=== PATIENT | female | born 1990 | race African-American/Black ===

== ENCOUNTER 2017-12-07 09:43 | Inpatient (IN) | payer SELFPAY ==
[~2017-12-07] VITALS: Ht 162.6 cm; Wt 60.5 kg
[2017-12-07] VITALS (9 sets, daily range): BP systolic 99–123; BP diastolic 55–69
[2017-12-07 10:21] LABS: BASOPHIL (%) 0 % (0-1); EOSINOPHIL (%) 0.4 % (0-5); HEMATOCRIT 16.8 % (36.0-46.0); HEMOGLOBIN 4.6 G/DL (11.9-15.5); IMMATURE GRANULOCYTE (%) 0.6 % (0.0-0.7); LYMPHOCYTE (%) 30.4 % (15-42); LYMPHOCYTE COUNT 1.5 K/uL (1.0-2.8); MCH 19.7 PG (29.0-34.0); MCHC 27.4 G/DL (30.0-36.0); MCV 72.1 FL (83-99); MONOCYTE (%) 9.9 % (3-12); MONOCYTE COUNT 0.5 K/uL (0-0.8); NEUTROPHIL (%) 58.7 % (45-76); NEUTROPHIL COUNT 2.8 K/uL (1.8-6.4); NRBC (%) 0.8 /100 WBC (0-0); PLATELET COUNT 415 K/uL (156-360); RBC DIS.WIDTH-CV 23.7 % (11.8-14.6); RBC DIS.WIDTH-SD 58.3 % (39-53); RED BLOOD COUNT 2.33 M/uL (3.80-5.20); WHITE BLOOD COUNT 4.8 K/uL (4.1-10.2)
[2017-12-07 10:23] LABS: CHLORIDE 108 mEq/L (99-109); SODIUM 139 mEq/L (136-147)
[2017-12-07 10:25] LABS: GLUCOSE 86 mg/dL (70-99)
[2017-12-07 10:28] LABS: POTASSIUM 3.6 mEq/L (3.7-5.4)
[2017-12-07 10:29] LABS: CREATININE 0.7 mg/dL (0.6-1.3)
[2017-12-07 10:30] LABS: GFR ESTIMATE (CALCULATED) > 59 mL/min/; UREA NITROGEN (BUN) 8 mg/dL (9-23)
[2017-12-07 10:37] LABS: QUANTITATIVE HCG < 4.0 MIU/ML
[2017-12-07 11:22] LABS: FOLIC ACID (FOLATE) 20.5 NG/ML (5.0-22.0)
[2017-12-07 11:44] LABS: IRON 14 MCG/DL (35-150); TRANSFERRIN (TIBC) 340.4 mg/dL (215-380); TRANSFERRIN SATUR. 4 % (20-55)
[2017-12-07] MEDS ORDERED: IRON325 M1 PO (11:45)
[2017-12-07] MEDS ORDERED: FOLIC ACID1 MG PO (11:45)
[2017-12-07] MEDS ORDERED: MULTI VITAMIN1 EACH PO (11:45)
[2017-12-07] MEDS ORDERED: PIRMELLA1 EACH PO (11:45)
[2017-12-07 12:30] LABS: FERRITIN 8 NG/ML (10-291)
[2017-12-07 16:11] LABS: HEMATOCRIT 23.7 % (36.0-46.0); MCV 78.5 FL (83-99)
[2017-12-07 20:55] LABS: HEMOGLOBIN 6.8 G/DL (11.9-15.5)
[2017-12-08] VITALS (8 sets, daily range): BP systolic 103–113; BP diastolic 56–65
[2017-12-08 02:18] LABS: HEMATOCRIT 24.2 % (36.0-46.0); HEMOGLOBIN 7.7 G/DL (11.9-15.5); MCV 78.8 FL (83-99)
[2017-12-08 02:49] LABS: CHLORIDE 110 mEq/L (99-109); POTASSIUM 4.2 mEq/L (3.7-5.4); SODIUM 136 mEq/L (136-147)
[2017-12-08 02:55] LABS: CREATININE 0.7 mg/dL (0.6-1.3); GFR ESTIMATE (CALCULATED) > 59 mL/min/
[2017-12-08 02:56] LABS: UREA NITROGEN (BUN) 11 mg/dL (9-23)
[2017-12-08 03:23] LABS: GLUCOSE 113 mg/dL (70-99)
[2017-12-08 08:47] LABS: THYROTROPIN (TSH) 2.6 MIU/L (0.4-5.5)
[2017-12-08 09:29] LABS: HEMATOCRIT 26.2 % (36.0-46.0); HEMOGLOBIN 7.8 G/DL (11.9-15.5); MCV 80.1 FL (83-99)
[2017-12-08 16:13] LABS: HEMATOCRIT 29.9 % (36.0-46.0); HEMOGLOBIN 9.3 G/DL (11.9-15.5); MCV 81.5 FL (83-99)
== END 2017-12-08 17:30 | disposition home or self-care (01) | DRG 812 ==
LOC: EME 09:43 → EDOF 10:58 → ENRESERV 11:00 → 4EAST 15:01
PROVIDERS: Emergency Medicine; Hospitalist; Obstetrics & Gynecology
PROC: 30233N1 Transfusion of Nonautologous Red Blood Cells into Peripheral Vein, Percutaneous Approach (ICD-10-PCS; principal; 2017-12-07)
DX: D62 Acute posthemorrhagic anemia (principal); D50.9 Iron deficiency anemia, unspecified; E28.2 Polycystic ovarian syndrome; N92.1 Excessive and frequent menstruation with irregular cycle; R00.2 Palpitations
CPT/HCPCS: 76856; 80048; 82607; 82728; 82746; 83520 90; 83540; 84443; 84466; 84702; 85014; 85018; 85025; 85027; 85240 90; 85245 90; 85246 90; 85247 90; 85730 90; 86850; 86900; 86901; 86920; 99281; 99285; J1756; J7050; P9016; P9040